=== PATIENT | female | born 1965 | race Caucasian/White ===

== ENCOUNTER → 2017-04-04 | Outpatient (CLI) | payer OTHER ==
[~2017-04-04] MED LIST: BUPR-83 PO; INDA1TAB3 PO; METO-157 PO; PANT40TA PO; PREG1CAP28 PO; PREG1CAP70 PO
--- NOTE | 2017-04-04 09:27 | DIAGNOSTIC IMAGING REPORT ---
R KNEE 4 OR MORE CLINICAL HISTORY: RIGHT KNEE PAIN COMPARISON: None. DISCUSSION: No acute fractures are visualized. There are mild to moderate osteoarthritic changes. There is medial joint compartment spurring. There are small dorsal patellar spurs. There is a small ossicle/loose body projected superior to the medial tibial spine. IMPRESSION: 1. Mild to moderate osteoarthritic change 2. No acute fractures. Electronically signed by: Enrique Luna M.D. 04/04/2017 9:26 AM Dictated Date/Time: 04/04/2017 9:25 AM
== END | disposition home or self-care (01) ==
LOC: C.RDSM 09:12
PROVIDERS: ATTEND Internal Medicine
DX: M25.561 Pain in right knee (principal)